=== PATIENT | male | born 1985 | race Caucasian/White ===

== ENCOUNTER 2017-07-17 15:27 | Inpatient (IN) | payer MEDICARE, MEDICAID ==
[~2017-07-17] VITALS: Ht 172.7 cm; Wt 80.3 kg
[~2017-07-17 15:27] MED LIST: QUET300T2 PO
[2017-07-17] MEDS ORDERED: HALO5 PO (15:45)
[2017-07-17 16:07] LABS: BASOPHILS % (AUTO) 0.7 % (0.0-2.0); EOSINOPHILS % (AUTO) 2.3 % (1.0-6.0); HEMATOCRIT 42.9 % (41-53); HEMOGLOBIN 14.8 g/dL (13.5-17.5); LYMPHOCYTES # (AUTO) 1.5 K/uL (1.0-4.8); LYMPHOCYTES % (AUTO) 25.6 % (22.0-44.0); MEAN CORPUSCULAR HEMOGLOBIN 29.4 pg (26.0-34.0); MEAN CORPUSCULAR HGB CONC 34.5 G/dL (31.0-37.0); MEAN CORPUSCULAR VOLUME 85 fL (80-100); MONOCYTES # (AUTO) 0.8 K/uL (0.1-1.0); MONOCYTES % (AUTO) 12.8 % (2.0-9.0); NEUTROPHILS # (AUTO) 3.4 K/uL (1.8-7.7); NEUTROPHILS % (AUTO) 58.6 % (40.0-70.0); PLATELET COUNT (AUTO) 216 K/uL (150-450); RED BLOOD CELL COUNT(AUTO) 5.05 MIL/uL (4.50-5.90); RED CELL DISTRIBUTION WIDTH 15.1 % (11.5-14.5)
[2017-07-17 16:36] LABS: ANION GAP 7 mmol/L (8-16); CALCIUM, TOTAL 8.6 mg/dL (8.8-10.5); CARBON DIOXIDE 30 mmol/L (22-29); CHLORIDE 104 mmol/L (98-107); GLOMERULAR FILTR. RATE CALC > 60 mL/min (>60); GLUCOSE,RANDOM 75 mg/dL (70-110); POTASSIUM 3.5 mmol/L (3.5-5.1); SODIUM SERUM 141 mmol/L (136-145); UREA NITROGEN, BLOOD 14 mg/dL (7-18)
[2017-07-17 16:38] LABS: AMPHET/METH SCREEN,URINE NEGATIVE (NEGATIVE); BARBITURATE SCREEN, URINE NEGATIVE (NEGATIVE); BENZODIAZEPINES SCREEN,URINE NEGATIVE (NEGATIVE); CANNABINOID SCREEN,URINE POSITIVE (NEGATIVE); COCAINE SCREEN,URINE NEGATIVE (NEGATIVE); METHADONE SCREEN, URINE NEGATIVE (NEGATIVE); OPIATE SCREEN,URINE NEGATIVE (NEGATIVE)
[2017-07-17 16:41] LABS: ALANINE AMINOTRANSFERASE 22 U/L (12-78); ALBUMIN 3.2 g/dL (3.4-5.0); ALKALINE PHOSPHATASE 80 U/L (46-116); ASPARTATE AMINOTRANSFERASE 17 U/L (15-37); BILIRUBIN,TOTAL 0.3 mg/dL (0.1-1.0); TOTAL PROTEIN, SERUM 6.6 g/dL (6.4-8.2)
[2017-07-17 16:59] LABS: PHENCYCLIDINE SCREEN,URINE NEGATIVE (NEGATIVE)
[2017-07-17] MEDS ORDERED: INFLUENZA VIRUS VACCINE QVS 2017-18 (3YR+)/PF 60 MCG/0.5 ML SYRINGE IM ONE (19:45)
[2017-07-17] MEDS ORDERED: ZOLPIDEM TARTRATE 10 MG TABLET PO PRN (20:00)
[2017-07-17] MEDS ORDERED: LORazepam 2 MG TABLET PO PRN (20:00)
[2017-07-17] MEDS ORDERED: QUEtiapine FUMARATE 100 MG TABLET PO PRN (20:00)
[2017-07-17 20:25] VITALS: BP 127/75
[2017-07-17] MEDS ORDERED: QUEtiapine FUMARATE 300 MG TABLET PO SCH (21:00)
[2017-07-18 08:03] LABS: CHOL/HDL RATIO 3.2 (4.2-7.3)
[2017-07-18] MEDS: NICOTINE 14 MG/24 HOUR PATCH TD SCH (09:00)
[2017-07-18 09:39] VITALS: BP 98/47
[2017-07-18 10:28] VITALS: BP 122/64
[2017-07-18 17:43] VITALS: BP 118/77
[2017-07-18] MEDS: QUEtiapine FUMARATE 300 MG ER TABLET PO SCH (20:12)
[2017-07-18] MEDS ORDERED: IBUPROFEN 400 MG TABLET PO PRN (20:15)
[2017-07-18] MEDS ORDERED: ACETAMINOPHEN 325 MG TABLET PO PRN (20:15)
[2017-07-19] VITALS: BP 123/68
[2017-07-19] MEDS: NICOTINE 14 MG/24 HOUR PATCH TD SCH (09:00)
[2017-07-19 09:38] VITALS: BP 102/45
[2017-07-19] MEDS: VENLAFAXINE HCL 75 MG ER CAPSULE PO SCH (10:10)
[2017-07-19 17:30] VITALS: BP 106/68
[2017-07-19] MEDS: QUEtiapine FUMARATE 300 MG ER TABLET PO SCH (21:27)
[2017-07-20 02:20] VITALS: BP 125/68
[2017-07-20 07:25] LABS: HEMOGLOBIN A1C 5.4 % (4.5-6.2)
[2017-07-20 07:41] LABS: THYROID STIMULATING HORMONE 1.41 uIU/mL (0.36-3.74)
[2017-07-20] MEDS: VENLAFAXINE HCL 75 MG ER CAPSULE PO SCH (08:14)
[2017-07-20] MEDS: NICOTINE 14 MG/24 HOUR PATCH TD SCH (08:14)
[2017-07-20 09:12] VITALS: BP 123/71
[2017-07-20 16:15] VITALS: BP 128/67
[2017-07-20] MEDS: QUEtiapine FUMARATE 300 MG ER TABLET PO SCH (21:30)
[2017-07-21] MEDS: VENLAFAXINE HCL 75 MG ER CAPSULE PO SCH ×2 (09:00→09:34)
[2017-07-21] MEDS: NICOTINE 14 MG/24 HOUR PATCH TD SCH ×2 (09:00→09:35)
[2017-07-21 13:41] VITALS: BP 128/68
[2017-07-21 16:15] VITALS: BP 113/70
[2017-07-21] MEDS: QUEtiapine FUMARATE 300 MG ER TABLET PO SCH (22:11)
[2017-07-22] MEDS: NICOTINE 14 MG/24 HOUR PATCH TD SCH (08:29)
[2017-07-22] MEDS: VENLAFAXINE HCL 75 MG ER CAPSULE PO SCH (08:29)
[2017-07-22 09:00] VITALS: BP 121/75
[2017-07-22] MEDS ORDERED: NICOTINE 14 MG/24 HOUR PATCH TD PRN (14:00)
[2017-07-22 17:30] VITALS: BP 124/72
[2017-07-22] MEDS: QUEtiapine FUMARATE 300 MG ER TABLET PO SCH (20:57)
[2017-07-23] MEDS ORDERED: QUET300T2 PO (03:39)
[2017-07-23] MEDS ORDERED: VENL-193 PO (03:40)
[2017-07-23] MEDS: VENLAFAXINE HCL 75 MG ER CAPSULE PO SCH (08:12)
[2017-07-23 10:24] VITALS: BP 123/69
== END 2017-07-23 08:50 | disposition home or self-care (01) | DRG 885 ==
LOC: EMS 15:28 → 3EI 19:48
PROVIDERS: ADMIT Psychiatry & Neurology Psychiatry; ATTEND Psychiatry & Neurology Psychiatry
DX: F25.0 Schizoaffective disorder, bipolar type (principal); I95.9 Hypotension, unspecified; R45.851 Suicidal ideations; F15.20 Other stimulant dependence, uncomplicated; F12.90 Cannabis use, unspecified, uncomplicated; F41.9 Anxiety disorder, unspecified; I10 Essential (primary) hypertension; Z71.51 Drug abuse counseling and surveillance of drug abuser; Z79.899 Other long term (current) drug therapy
CPT/HCPCS: 83036; 84443; 87081; 99285; G0480